=== PATIENT | male | born 1990 | race Caucasian/White ===

== ENCOUNTER 2024-11-20 10:55 | Emergency (ER) | payer MEDICAID ==
[~2024-11-20] VITALS: Ht 175.3 cm; Wt 86.3 kg
[2024-11-20 11:14] VITALS: TEMP 97.8
[2024-11-20] MEDS: PERTUSS(ACELL),DIPH,TET/PF 0.5 ML SYRINGE [ADULT] IM. ONE (13:28)
[2024-11-20] MEDS: CEPHALEXIN MONOHYDRATE 500 MG CAPSULE PO ONE (14:34)
[2024-11-20] MEDS ORDERED: CEPH-558 PO (14:40)
[2024-11-20 14:44] VITALS: BP 122/62; PULSE 65; RESP 18; O2SAT 96
== END 2024-11-20 14:45 | disposition home or self-care (01) ==
LOC: EMS 10:55
DX: S61.031A Puncture wound without foreign body of right thumb without damage to nail, initial encounter (principal); W45.0XXA Nail entering through skin, initial encounter; Y93.89 Activity, other specified; Y92.89 Other specified places as the place of occurrence of the external cause; Y99.8 Other external cause status
CPT/HCPCS: 90471; 90715; 99283